=== PATIENT | male | born 1935 | race Caucasian/White ===

== ENCOUNTER → 2016-10-22 | Outpatient (CLI) | payer MEDICARE ==
[2016-10-22 11:22] LABS: ANION GAP 7 MEQ/L (8-16); BLOOD UREA NITROGEN 21 MG/DL (7-18); CALCIUM LEVEL 8.4 MG/DL (8.8-10.2); CARBON DIOXIDE LEVEL 29 MEQ/L (21-32); CHLORIDE LEVEL 109 MEQ/L (98-107); CREATININE FOR GFR 1.09 MG/DL (0.70-1.30); GLOMERULAR FILTRATION RATE > 60.0 (>42); GLUCOSE, FASTING 135 MG/DL (83-110); POTASSIUM SERUM 4.3 MEQ/L (3.5-5.1); SODIUM LEVEL 145 MEQ/L (136-145)
[2016-10-22 11:26] LABS: COLLAGEN ADP 110 SECONDS (56-103)
--- NOTE | 2016-10-22 14:01 | ECGEPIP ---
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 No prior ECG available for comparison at the time of interpretation. Electronically Signed On 10-22-2016 14:00:47 EST by Fahad Bunch
== END ==
LOC: M LAB 10:26
PROVIDERS: ATTEND Ophthalmology
DX: Z01.818 Encounter for other preprocedural examination (principal); H25.13 Age-related nuclear cataract, bilateral

== ENCOUNTER → 2017-04-06 | Outpatient (REF) | payer MEDICARE ==
[2017-04-06 17:01] LABS: PERCENT SATURATION 27.7 % (19.7-50.0); TOTAL IRON BINDING CAPACITY 271 UG/DL (250-450)
[2017-04-06 17:06] LABS: FOLATE > 24.0 NG/ML; VITAMIN B12 LEVEL 389 PG/ML
== END ==
LOC: M LAB REF 16:30
PROVIDERS: ATTEND Internal Medicine
DX: D64.9 Anemia, unspecified (principal)

== ENCOUNTER 2017-09-09 11:25 | Day surgery (SDC) | payer MEDICARE ==
[2017-09-09] MEDS ORDERED: NS 1,000 ML IV (12:30)
[2017-09-09] MEDS ORDERED: fentaNYL 100 MCG/2 ML INJECTION (J3010) As Ordered (12:34)
[2017-09-09] MEDS ORDERED: ePHEDrine SULFATE 25 MG/5 ML(5MG/ML) SYRINGE As Ordered (12:54)
[2017-09-09] MEDS ORDERED: PROPOFOL 200 MG/20 ML VIAL As Ordered (12:56)
[2017-09-09] MEDS ORDERED: LIDOCAINE 2% INJ 100 MG/5 ML SDV (FOR ANES.) As Ordered (12:56)
== END 2017-09-09 13:31 | disposition home or self-care (01) ==
LOC: M OPP 11:25
DX: R13.10 Dysphagia, unspecified (principal); R63.4 Abnormal weight loss; K22.8 Other specified diseases of esophagus; K22.4 Dyskinesia of esophagus; I48.91 Unspecified atrial fibrillation; Z95.5 Presence of coronary angioplasty implant and graft; I25.10 Atherosclerotic heart disease of native coronary artery without angina pectoris; I10 Essential (primary) hypertension; E78.5 Hyperlipidemia, unspecified; R60.0 Localized edema; E11.9 Type 2 diabetes mellitus without complications; K59.00 Constipation, unspecified; R12 Heartburn; K21.9 Gastro-esophageal reflux disease without esophagitis; M19.90 Unspecified osteoarthritis, unspecified site; Z85.46 Personal history of malignant neoplasm of prostate; Z92.3 Personal history of irradiation; Z87.891 Personal history of nicotine dependence; Z79.899 Other long term (current) drug therapy; Z79.82 Long term (current) use of aspirin; Z80.49 Family history of malignant neoplasm of other genital organs
CPT/HCPCS: 43249

== ENCOUNTER → 2017-10-16 | Outpatient (CLI) | payer MEDICARE ==
[~2017-10-16] MED LIST: ISOVUE-370 76% 100ML VIAL (Q9967) As Ordered
== END ==
LOC: M RAD 10:49
DX: I71.03 Dissection of thoracoabdominal aorta (principal); N20.0 Calculus of kidney; N28.1 Cyst of kidney, acquired
CPT/HCPCS: Q9967

== ENCOUNTER → 2017-10-26 | Outpatient (REF) | payer MEDICARE ==
[2017-10-26 19:45] LABS: IRON (FE) 22 UG/DL (65-175); PERCENT SATURATION 10.2 % (19.7-50.0); TOTAL IRON BINDING CAPACITY 215 UG/DL (250-450); TOTAL PROTEIN 6.5 GM/DL (6.4-8.2)
[2017-10-27 13:41] LABS: ALBUMIN % 48.2 % (55.8-66.1); ALPHA-1-GLOBULIN % 9.4 % (2.9-4.9); ALPHA-2-GLOBULINS % 18.9 % (7.1-11.8); BETA-1-GLOBULINS % 6.9 % (4.7-7.2)
[2017-10-27 13:42] LABS: ALBUMIN 3.13 GM/DL (3.29-5.55); ALPHA-1-GLOBULINS 0.61 GM/DL (0.17-0.41); ALPHA-2-GLOBULINS 1.23 GM/DL (0.42-0.99); BETA-1-GLOBULINS 0.45 GM/DL (0.28-0.60); BETA-2-GLOBULINS 0.65 GM/DL (0.19-0.55); GAMMA GLOBULIN % 6.6 % (11.1-18.8); GAMMA GLOBULINS 0.43 GM/DL (0.65-1.58)
== END ==
LOC: M LAB REF 18:56
DX: D64.9 Anemia, unspecified (principal); E13.42 Other specified diabetes mellitus with diabetic polyneuropathy
CPT/HCPCS: 83550

== ENCOUNTER → 2017-10-29 | Outpatient (REF) | payer MEDICARE ==
[2017-10-29 13:53] LABS: TOTAL PROTEIN,RANDOM URINE 74.8 MG/DL (0.0-12.0)
== END ==
LOC: M LAB REF 12:26
DX: E88.09 Other disorders of plasma-protein metabolism, not elsewhere classified (principal)
CPT/HCPCS: 86335

== ENCOUNTER → 2017-11-04 | Outpatient (REF) | payer MEDICARE ==
[2017-11-04 13:15] LABS: BASO # 0.1 10^3/uL (0.0-0.2); BASO % 0.7 % (0.0-1.0); EOS # 0.2 10^3/uL (0.0-0.50); HEMATOCRIT 23.4 % (42.0-52.0); HEMOGLOBIN 8.7 g/dl (14.0-18.0); IMMATURE GRANULOCYTE # 0.1 10^3/uL (0-0); IMMATURE GRANULOCYTE % 0.9 % (0-3.0); LYMPH # 1.2 10^3/uL (1.5-4.5); MEAN CORPUSCULAR HEMOGLOBIN 34.3 pg (27.0-33.0); MEAN CORPUSCULAR VOLUME 92.1 fl (80.0-96.0); MONO % 10.9 % (0.0-5.0); NEUTROPHILS # 6.5 10^3/uL (1.8-7.7); NEUTROPHILS % 72.5 % (36.0-66.0); PLATELET COUNT, AUTOMATED 363 10^3/uL (150-450); RED BLOOD COUNT 2.54 10^6/uL (4.30-6.10); RED CELL DISTRIBUTION WIDTH 14.5 % (11.5-14.5); WHITE BLOOD COUNT 8.9 10^3/uL (4.0-10.0)
[2017-11-04 13:23] LABS: MEAN CORPUSCULAR HGB CONC 37.2 g/dl (32.0-36.5)
[2017-11-04 14:48] LABS: ALBUMIN 2.5 GM/DL (3.2-5.2); ALBUMIN/GLOBULIN RATIO 0.74 (1.00-1.93); ALKALINE PHOSPHATASE 82 U/L (45-117); ALT/SGPT 25 U/L (12-78); ANION GAP 8 MEQ/L (8-16); AST/SGOT 18 U/L (7-37); BILIRUBIN,TOTAL 0.4 MG/DL (0.2-1.0); BLOOD UREA NITROGEN 29 MG/DL (7-18); CALCIUM LEVEL 8.1 MG/DL (8.8-10.2); CARBON DIOXIDE LEVEL 27 MEQ/L (21-32); CHLORIDE LEVEL 109 MEQ/L (98-107); CREATININE FOR GFR 1.45 MG/DL (0.70-1.30); GLOMERULAR FILTRATION RATE 49.9 (>35); GLUCOSE, FASTING 103 MG/DL (70-100); NT-PRO BNP 1261 PG/ML (<450); POTASSIUM SERUM 4.3 MEQ/L (3.5-5.1); SODIUM LEVEL 144 MEQ/L (136-145); TOTAL PROTEIN 5.9 GM/DL (6.4-8.2)
== END ==
LOC: M LABDRAW1 11:46
DX: D64.9 Anemia, unspecified (principal); I11.9 Hypertensive heart disease without heart failure; I48.0 Paroxysmal atrial fibrillation; R60.0 Localized edema
CPT/HCPCS: 84443

== ENCOUNTER → 2017-11-20 | Outpatient (REF) | payer MEDICARE ==
[2017-11-20 17:03] LABS: IRON (FE) 48 UG/DL (65-175); PERCENT SATURATION 23.5 % (19.7-50.0); TOTAL IRON BINDING CAPACITY 204 UG/DL (250-450)
== END ==
LOC: M LAB REF 16:37
DX: D50.9 Iron deficiency anemia, unspecified (principal)
CPT/HCPCS: 83550

== ENCOUNTER → 2018-01-11 | Outpatient (REF) | payer MEDICARE ==
[2018-01-11 13:21] LABS: IRON (FE) 78 UG/DL (65-175); PERCENT SATURATION 30.7 % (19.7-50.0); TOTAL IRON BINDING CAPACITY 254 UG/DL (250-450)
== END ==
LOC: M LAB REF 12:30
DX: D50.9 Iron deficiency anemia, unspecified (principal)
CPT/HCPCS: 83550

== ENCOUNTER → 2018-03-19 | Outpatient (REF) | payer MEDICARE ==
[2018-03-19 13:43] LABS: VITAMIN B12 LEVEL 793 PG/ML (247-911)
[2018-03-27 00:08] LABS: HOMOCYST(E)INE SERUM 11.4 umol/L (0.0-15.0)
[2018-03-27 00:08] LABS: Methylmalonic Acid 225 nmol/L (0-378)
== END ==
LOC: M LAB REF 13:03
DX: D51.9 Vitamin B12 deficiency anemia, unspecified (principal)
CPT/HCPCS: 82607

== ENCOUNTER → 2018-03-25 | Outpatient (REF) | payer MEDICARE | LOC: M LAB REF 13:38 | DX: D64.9 Anemia, unspecified (principal) | CPT/HCPCS: 88300 ==

== ENCOUNTER → 2018-04-19 | Outpatient (REF) | payer MEDICARE ==
[2018-04-19 11:40] LABS: IRON (FE) 43 UG/DL (65-175); PERCENT SATURATION 19.5 % (19.7-50.0); TOTAL IRON BINDING CAPACITY 220 UG/DL (250-450)
== END ==
LOC: M LAB REF 10:45
DX: D50.9 Iron deficiency anemia, unspecified (principal)
CPT/HCPCS: 83550

== ENCOUNTER → 2018-06-10 | Outpatient (REF) | payer MEDICARE ==
[2018-06-10 14:52] LABS: IRON (FE) 55 UG/DL (65-175); PERCENT SATURATION 22.6 % (19.7-50.0); TOTAL IRON BINDING CAPACITY 243 UG/DL (250-450)
[2018-06-10 15:27] LABS: RETIC HEMOGLOBIN EQUIVALENT 33.1 pg (24-36); RETICULOCYTE % 1.5 % (0.5-1.5)
== END ==
LOC: M LAB REF 13:59
DX: D50.9 Iron deficiency anemia, unspecified (principal)
CPT/HCPCS: 83550

== ENCOUNTER 2018-09-21 11:02 | Inpatient (IN) | payer MEDICARE ==
[~2018-09-21] VITALS: Ht 172.7 cm; Wt 87.9 kg
[~2018-09-21 11:02] MED LIST changes: -COLA100C5 PO; -FERR1TAB8 PO; -GASTROGRAFIN SOLUTION 30ML (Q9963) As Ordered ONE; -RANI150T PO
[2018-09-21] MEDS ORDERED: FERR1TAB8 PO (11:56)
[2018-09-21] MEDS ORDERED: RANI150T PO (11:56)
[2018-09-21] MEDS ORDERED: COLA100C5 PO (11:57)
[2018-09-21 11:58] LABS: BASO % 0.2 % (0.0-1.0); EOS # 0.1 10^3/uL (0.0-0.50); EOS % 0.6 % (0.0-3.0); HEMOGLOBIN 9.1 g/dl (13.5-17.5); LYMPH # 0.9 10^3/uL (1.5-4.5); LYMPH % 6.2 % (24.0-44.0); MEAN CORPUSCULAR HEMOGLOBIN 28.9 pg (27.0-33.0); MEAN CORPUSCULAR HGB CONC 32.5 g/dl (32.0-36.5); MEAN CORPUSCULAR VOLUME 88.9 fl (80.0-96.0); MONO # 1.6 10^3/uL (0.0-0.8); MONO % 11.3 % (0.0-5.0); NEUTROPHILS # 11.7 10^3/uL (1.8-7.7); NEUTROPHILS % 80.9 % (36.0-66.0); PLATELET COUNT, AUTOMATED 222 10^3/uL (150-450); RED BLOOD COUNT 3.15 10^6/uL (4.30-6.10); WHITE BLOOD COUNT 14.5 10^3/uL (4.0-10.0)
[2018-09-21] MEDS ORDERED: PIPERACILLIN/TAZOBACTAM SOD 3.375 GM in D5W MINI-BAG PLUS 50 ML IV ONE (12:30)
[2018-09-21 12:40] LABS: ALBUMIN 2.4 GM/DL (3.2-5.2); BILIRUBIN,TOTAL 0.4 MG/DL (0.2-1.0); C REACTIVE PROTEIN QUANTITATIV 24.8 MG/DL (0.00-0.30); CALCIUM LEVEL 7.9 MG/DL (8.8-10.2); CREATININE FOR GFR 1.64 MG/DL (0.70-1.30); GLOMERULAR FILTRATION RATE 43.1 (>35); POTASSIUM SERUM 4.6 MEQ/L (3.5-5.1); TOTAL PROTEIN 6.1 GM/DL (6.4-8.2)
[2018-09-21] MEDS ORDERED: ACETAMINOPH W/CODEINE #3 TAB UD PO PRN (15:15)
[2018-09-21] MEDS ORDERED: ONDANSETRON 4MG/2ML VIAL (J2405) IV PRN (15:15)
[2018-09-21] MEDS: LR 1,000 ML IV SCH (15:30)
[2018-09-21] MEDS ORDERED: LIDOCAINE 1% MDV 20ML VIAL As Ordered ONE (15:56)
[2018-09-21 16:45] VITALS: BP 165/74
--- NOTE | 2018-09-21 17:37 | REP ---
Ultrasound-guided abscess drain The procedure was performed under the direct supervision of Dr. Rojo. The patient has a history of a 5 cm low-density inflammatory collection retrocecal in the right mid abdomen most compatible with acute appendicitis with abscess seen on a previous CT scan performed earlier today. The risks and benefits of the procedure were explained to the patient and informed consent was obtained. The abscess was localized using ultrasound guidance. The skin was prepped and draped in a sterile fashion. 1% lidocaine was used as a local anesthetic. Using ultrasound guidance an 8-Brazilian Skater APDL catheter was inserted, however, is was likely deployed beside the abscess as there was no return. The catheter was removed and a new 8-Brazilian Skater APDL catheter was inserted into the abscess using trocar technique. 30 ml of beige, red tinged fluid was withdrawn and sent to the lab for analysis. The abscess cavity was flushed with three 10 ml aliquots of sterile saline. The catheter was affixed to the skin and attached to a gravity drainage bag. A sterile dressing was applied. The the patient tolerated the procedure well and there were no immediate complications. Reviewed by JOSSELINE Rodríguez 09/21/2018 04:49 P Electronically Signed by Brown Rojo MD 09/21/2018 05:26 P
[2018-09-21] MEDS: PIPERACILLIN/TAZOBACTAM SOD 3.375 GM in D5W MINI-BAG PLUS 50 ML IV SCH (18:24)
[2018-09-21] MEDS: FAMOTIDINE 20 MG TAB PO SCH (19:59)
[2018-09-21] MEDS: ATORVASTATIN 20 MG TAB PO SCH (20:00)
[2018-09-21] MEDS: ACETAMINOPHEN TAB 650MG DOSE (2X325MG) PO PRN (20:00)
[2018-09-21] MEDS: CARVedilol 12.5 MG TAB PO SCH (20:00)
[2018-09-21 22:00] VITALS: BP 151/67
[2018-09-22] MEDS: PIPERACILLIN/TAZOBACTAM SOD 3.375 GM in D5W MINI-BAG PLUS 50 ML IV SCH ×4 (00:20→18:32)
--- NOTE | 2018-09-22 00:29 | HPE ---
DATE OF ADMISSION: 09/21/2018 ADMISSION DIAGNOSIS: Appendicitis with abscess. HISTORY OF PRESENT ILLNESS: The patient is a pleasant 82-year-old man who has been followed by (cut off) for a myelodysplastic syndrome for some time. He has anemia secondary to this. He was seen last week on or about September 14, 2018, and at that time, he had complained of some lower abdominal pain, particularly in the right lower quadrant. Because of this, he was scheduled for a CT scan of the abdomen and pelvis. That was done on September 21, 2018 and the scan showed findings of an abscess just inferior to the cecum consistent with appendicitis with abscess. He reported that he had been having pain since last week. He had noticed a couple of nights when he had some obvious sweating. He had not noticed any definite rigors. He did report that his appetite was off, and he had persistent pain that waxed and waned somewhat in intensity. He was sent to the emergency department and because of his CT findings, I was consulted. The patient is now admitted to manage his appendicitis with abscess. ALLERGIES: The patient denies any known drug allergies. HOME MEDICATIONS: Include amiodarone 200 mg by mouth daily, amlodipine 10 mg by mouth daily, atorvastatin 80 mg by mouth every evening at bedtime, carvedilol 12.5 mg by mouth twice daily, Colace 100 mg by mouth daily, ferrous sulfate 325 mg by mouth twice daily, glucosamine chondroitin one capsule by mouth daily, magnesium oxide 400 mg by mouth twice daily, metformin hydrochloride 750 mg by mouth daily, multivitamin AREDS one capsule by mouth daily, a multivitamin one tablet daily, vitamin B6 100 mg by mouth three times weekly on Thursday, Thursday and Thursday, ranitidine 150 mg by mouth twice daily and torsemide 10 mg by mouth daily. MEDICAL HISTORY: Medical history is significant for his myelodysplastic syndrome with anemia. He apparently has not been found to have any signs of myeloma. He has a history of prostate cancer treated with radiation therapy in about 2009. He has a history of high cholesterol and hypertension. He has a known chronic (cut off) beginning in the posterior aortic arch and descending thoracic aorta and extending through the abdominal aorta to the level of the iliac bifurcation. This has been followed with serial imaging and has remained stable. The patient is a former smoker. He also has diabetes mellitus type 2. SURGICAL HISTORY: Significant for distant repair of an inguinal hernia. He has had a laparoscopic cholecystectomy. In December of 2017, he underwent drainage of a subdural hematoma, which had occurred following a fall 1-2 months earlier. He had been on Eliquis for a history of atrial fibrillation, but this was discontinued after his subdural hematoma. He has had surgery for trigger fingers. He has had some skin lesions removed from the neck. He has also had bilateral cataract surgery. SOCIAL HISTORY: Patient is . He is accompanied by his and daughter to the emergency department. He is a former smoker and denies any significant alcohol intake. REVIEW OF SYSTEMS: Shows no recent chest pain or palpitations. He denies shortness of breath, cough, wheezing or sputum production. He has not had any nausea or vomiting but does report that his appetite has been off. He has no new bone or joint issues. He denies any dysuria or hematuria. He has had no history of seizure or stroke. The remainder of the review of systems is negative. FAMILY HISTORY: Noncontributory. PHYSICAL EXAM: Reveals a pleasant older man sitting on the edge of the stretcher in the emergency department. His most recent vital signs show a temperature of 99.1, pulse of 70, respirations of 18 and a blood pressure of 154/63. The patient is alert and oriented. Skin: Warm and dry. Sclerae are anicteric. Mucous membranes are moist. The neck is supple without mass or bruit. Heart exam shows a regular rhythm. The lungs are clear to auscultation bilaterally. The patient's abdomen is flat. He has a couple of small scars in the upper abdomen consistent with prior laparoscopic cholecystectomy. He does have bowel sounds present. There is no evident abdominal wall hernia. Percussion shows some tenderness in the right midabdomen. On palpation, the abdomen is soft throughout, but he has some moderate to moderately-severe direct tenderness about at and slightly above the level of the umbilicus in the right side of the abdomen laterally. No definite mass is palpable. Extremities: Show palpable radial and pedal pulses bilaterally. He has no peripheral edema. Laboratory studies show a white count of 14.5 with a differential showing 81% neutrophils, 6% lymphocytes and 11% monocytes. Hemoglobin is 9 with a hematocrit of 28% and the platelet count is 222,000. His chemistry profile shows sodium 142, potassium 4.6, chloride 107, CO2 of 25, BUN of 25, creatinine 1.6 and a glucose of 142. His lactic acid was 2.1. Liver function tests were normal. C-reactive protein was 24.8, which is quite high. Total protein was 6.1 with an albumin of 2.4. His CT scan I reviewed independently. The gallbladder is surgically absent with some clips present. He has a definite collection of somewhat mixed density in the area just inferior and posterior to the cecum. This lies just inferior to the inferior most aspect of the right lobe of the liver. There is no evidence of any free air or free fluid within the abdomen. The abscess is approximately 5 cm in maximum diameter. I reviewed a prior CT scan from 2013, and the area of this collection is certainly consistent with the site of the previously noted appendix. His appendix is not however well seen currently. IMPRESSION: 1. Appendicitis with abscess. 2. Chronic thoracoabdominal aortic dissection. 3. Diabetes mellitus. 4. Hypertension. 5. History of atrial fibrillation. 6. Hyperlipidemia. 7. Myelodysplastic syndrome with chronic anemia. 8. Gastroesophageal reflux disease. 9. History of prostate cancer, status post radiation treatment 2009. 10. Chronic kidney disease stage III. 11. Status post drainage of subdural hematoma December 2017. PLAN: The patient was counseled that he has a definite abscess that requires treatment. I advised the patient and his family that operating now when there is a definite abscess would increase the likelihood of infectious problems within the abdomen or within his wound or wounds. I have recommended that we treat him with antibiotics and have a percutaneous drain placement for management of the abscess. I advised him that if he responds well to this treatment, he would be in the hospital for several days and then at home on antibiotics for a time. If the abscess can be managed in this way, we can discuss later whether to proceed with an elective incidental appendectomy or whether to just monitor him for any evidence of recurrence. The patient and his family members had an opportunity to ask questions. They are agreeable with the plan for nonoperative management at this time. He will be continued on piperacillin-tazobactam for antibiotic coverage. We will continue many of his regular medications here in the hospital. I will consult radiology for an imaging-guided percutaneous drain placement.
[2018-09-22 02:00] VITALS: BP 116/59
[2018-09-22 06:00] VITALS: BP 150/69
[2018-09-22] MEDS: LR 1,000 ML IV SCH (06:00)
[2018-09-22 06:02] LABS: BASO % 0.4 % (0.0-1.0); EOS # 0.1 10^3/uL (0.0-0.50); EOS % 0.9 % (0.0-3.0); HEMATOCRIT 27.7 % (42.0-52.0); HEMOGLOBIN 8.9 g/dl (13.5-17.5); LYMPH % 9.6 % (24.0-44.0); MEAN CORPUSCULAR HEMOGLOBIN 28.6 pg (27.0-33.0); MEAN CORPUSCULAR HGB CONC 32.1 g/dl (32.0-36.5); MEAN CORPUSCULAR VOLUME 89.1 fl (80.0-96.0); NEUTROPHILS # 8.4 10^3/uL (1.8-7.7); NEUTROPHILS % 78.9 % (36.0-66.0); PLATELET COUNT, AUTOMATED 193 10^3/uL (150-450); RED BLOOD COUNT 3.11 10^6/uL (4.30-6.10); WHITE BLOOD COUNT 10.7 10^3/uL (4.0-10.0)
[2018-09-22 06:26] LABS: CALCIUM LEVEL 8.2 MG/DL (8.8-10.2); CREATININE FOR GFR 1.56 MG/DL (0.70-1.30); GLOMERULAR FILTRATION RATE 45.7 (>35); POTASSIUM SERUM 4.2 MEQ/L (3.5-5.1)
[2018-09-22 10:00] VITALS: BP 146/48
[2018-09-22] MEDS: TORSEMIDE 10 MG TABLET PO SCH (10:14)
[2018-09-22] MEDS: MULTIVITAMINS/MINERALS THERAP 1 TAB PO SCH (10:14)
[2018-09-22] MEDS: PYRIDOXINE 50 MG TAB PO SCH (10:14)
[2018-09-22] MEDS: AMIODARONE 200 MG TAB (PACERONE) PO SCH (10:15)
[2018-09-22] MEDS: FAMOTIDINE 20 MG TAB PO SCH ×2 (10:15→20:40)
[2018-09-22] MEDS: amLODIPine 10 MG TAB PO SCH (10:17)
[2018-09-22] MEDS: DOCUSATE SODIUM 100 MG CAP PO SCH (10:18)
[2018-09-22] MEDS: CARVedilol 12.5 MG TAB PO SCH ×2 (10:18→20:40)
[2018-09-22 14:00] VITALS: BP 145/65
[2018-09-22 18:00] VITALS: BP 139/65
[2018-09-22] MEDS: ATORVASTATIN 20 MG TAB PO SCH (20:40)
[2018-09-22] MEDS: ACETAMINOPHEN TAB 650MG DOSE (2X325MG) PO PRN (20:52)
[2018-09-22 22:00] VITALS: BP 138/62
[2018-09-23] VITALS (7 sets, daily range): BP systolic 115–149; BP diastolic 59–78
[2018-09-23] MEDS: PIPERACILLIN/TAZOBACTAM SOD 3.375 GM in D5W MINI-BAG PLUS 50 ML IV SCH ×4 (00:02→18:08)
[2018-09-23] MEDS: DOCUSATE SODIUM 100 MG CAP PO SCH (08:40)
[2018-09-23] MEDS: MULTIVITAMINS/MINERALS THERAP 1 TAB PO SCH (08:41)
[2018-09-23] MEDS: TORSEMIDE 10 MG TABLET PO SCH (08:41)
[2018-09-23] MEDS: FAMOTIDINE 20 MG TAB PO SCH ×2 (08:41→20:43)
[2018-09-23] MEDS: CARVedilol 12.5 MG TAB PO SCH ×2 (08:41→20:43)
[2018-09-23] MEDS: AMIODARONE 200 MG TAB (PACERONE) PO SCH (08:41)
[2018-09-23] MEDS: amLODIPine 10 MG TAB PO SCH (08:41)
[2018-09-23] MEDS: metFORMIN XR 750 MG TAB PO SCH (09:00)
[2018-09-23] MEDS: OCUVITE 1 TAB PO SCH (18:08)
[2018-09-23] MEDS: ATORVASTATIN 20 MG TAB PO SCH (20:42)
[2018-09-23] MEDS: ACETAMINOPHEN TAB 650MG DOSE (2X325MG) PO PRN (20:44)
[2018-09-24] MEDS: PIPERACILLIN/TAZOBACTAM SOD 3.375 GM in D5W MINI-BAG PLUS 50 ML IV SCH ×2 (01:57→06:24)
[2018-09-24 02:00] VITALS: BP 155/66
[2018-09-24 06:00] VITALS: BP 137/66
[2018-09-24 07:18] LABS: BASO % 0.5 % (0.0-1.0); EOS # 0.1 10^3/uL (0.0-0.50); EOS % 1.3 % (0.0-3.0); HEMATOCRIT 28.2 % (42.0-52.0); HEMOGLOBIN 9.2 g/dl (13.5-17.5); LYMPH # 1.1 10^3/uL (1.5-4.5); LYMPH % 14.5 % (24.0-44.0); MEAN CORPUSCULAR HEMOGLOBIN 29.2 pg (27.0-33.0); MEAN CORPUSCULAR HGB CONC 32.6 g/dl (32.0-36.5); MEAN CORPUSCULAR VOLUME 89.5 fl (80.0-96.0); MONO # 0.8 10^3/uL (0.0-0.8); MONO % 10.5 % (0.0-5.0); NEUTROPHILS # 5.3 10^3/uL (1.8-7.7); NEUTROPHILS % 71.7 % (36.0-66.0); PLATELET COUNT, AUTOMATED 234 10^3/uL (150-450); RED BLOOD COUNT 3.15 10^6/uL (4.30-6.10); WHITE BLOOD COUNT 7.4 10^3/uL (4.0-10.0)
[2018-09-24] MEDS ORDERED: AUGM875T28 PO (10:15)
[2018-09-24] MEDS: metFORMIN XR 750 MG TAB PO SCH (10:16)
[2018-09-24] MEDS: PYRIDOXINE 50 MG TAB PO SCH (10:16)
[2018-09-24] MEDS: OCUVITE 1 TAB PO SCH (10:16)
[2018-09-24] MEDS: AMIODARONE 200 MG TAB (PACERONE) PO SCH (10:17)
[2018-09-24] MEDS: amLODIPine 10 MG TAB PO SCH (10:17)
[2018-09-24] MEDS: TORSEMIDE 10 MG TABLET PO SCH (10:17)
[2018-09-24] MEDS: MULTIVITAMINS/MINERALS THERAP 1 TAB PO SCH (10:17)
[2018-09-24 10:18] VITALS: BP 137/66
[2018-09-24] MEDS: CARVedilol 12.5 MG TAB PO SCH (10:18)
[2018-09-24] MEDS: FAMOTIDINE 20 MG TAB PO SCH (10:18)
[2018-09-24] MEDS: DOCUSATE SODIUM 100 MG CAP PO SCH (10:18)
--- NOTE | 2018-09-25 06:58 | IPN ---
DATE: 09/24/2018 HISTORY: The patient is now three days post drainage of a right mid abdominal abscess felt to be secondary to appendicitis. He has done very well over the last 24 hours. He is eating and voiding without difficulty. He continues on his piperacillin tazobactam. The drain is draining small amounts. Vital signs show that he has been afebrile over the past 24 hours. His pulse has generally been in the 60s to low 70s. Blood pressure is excellent and his room air pulse oximetry is in the mid 90s. Intake and output yesterday he had 590 recorded in with a 1000 recorded out. His drain had 20 mL out yesterday and 13 mL recorded today. PHYSICAL EXAMINATION: Exam reveals an older man in no acute distress. He moves without apparent difficulty or pain. Examination of the abdomen shows the abdomen to be soft. It is nondistended. He has bowel sounds present. He has a percutaneous drain in the right flank, which is securely taped to the abdominal wall. There is a minimal amount of bloody/purulent appearing fluid in the bag. Laboratory studies show a white count of 7, which has now returned to normal of 11 on the . His hemoglobin is 9 with a hematocrit of 28 and platelet count is 234,000. Differential count shows 72% neutrophils, 14% lymphocytes, 10% monocytes. Cultures of his drainage fluid showed no growth aerobically. IMPRESSION: The patient is doing very well following percutaneous drainage of his appendiceal abscess. He is quite comfortable and his white count has returned to normal and he remains afebrile. PLAN: The patient will be converted to oral antibiotics. Initially I considered Cipro and Flagyl, but the pharmacy program reports that there can be an interaction between the amiodarone and the Flagyl to cause issues, so a prescription for Augmentin will be provided. He is not taking any prescription pain relievers and these will not be prescribed. He was instructed he will need to empty the drain daily and record the output and his is aware of this and will assist with this. He can take a diet as tolerated and pursue light activity as tolerated. I will plan on seeing him back next week in the office on the for possible removal of his drain. Subsequently, we can arrange followup imaging and later determine for an interval appendectomy is appropriate. The patient had an opportunity to have his questions answered and he will be discharged today.
--- NOTE | 2018-09-25 07:10 | IPN ---
DATE: 09/23/2018 HISTORY: The patient is now postop day #2 from percutaneous drain placement for an abscess secondary to appendicitis. The drain was placed on the late afternoon or evening of the . The patient has done well since drainage. He has had no fevers or chills. He is tolerating a diet and is up ambulating without difficulty. Vital signs show that he has been afebrile over the past 24 hours. His pulse is in the 60s to 70s and his blood pressure is good. Intake and output shows that yesterday he had 2400 in with 1400 out. His drain had 20 mL recorded out yesterday. PHYSICAL EXAMINATION: Shows the patient appears quite comfortable. He is ambulating without difficulty. The abdomen is soft and he has only some minimal tenderness on the right-hand side. The drain is well taped to the flank. IMPRESSION: The patient is doing quite well following drainage of his abscess. He remains on piperacillin/tazobactam for coverage. PLAN: The patient's diet will be advanced. He has tolerated clear liquids well. He will be advanced to a regular diet. We will recheck a CBC tomorrow. He will remain on his usual medications. I would anticipate that if he continues to do well he would be ready for discharge for the next 1-2 days.
--- NOTE | 2018-09-25 07:11 | IPN ---
DATE OF SERVICE: 09/22/2018 HISTORY: The patient was admitted yesterday with an abscess secondary to appendicitis. Radiology was able to place a percutaneous drain last evening with return of some purulent fluid. They reported return of approximately 30 mL of fluid. Fluid was sent for Gram stain and culture. The patient reports that he is generally doing well with very little discomfort from the drain placement. Vital signs show that he has been afebrile since placement of the drain. His pulse is in the 60s and 70s. Blood pressure and oxygen saturation are fine. Intake and output shows that his intake yesterday is not well recorded. He had a urine output of 400 mL recorded yesterday. PHYSICAL EXAMINATION: The patient is actually up ambulating in the room. He is alert and oriented. His heart exam shows a regular rhythm and the lungs are clear. The abdomen is soft and the drain is nicely taped to the right flank with a minimal amount of bloody fluid in the drainage bag. Laboratory studies today show white count of 11,000 which is down from 14,000 yesterday. Hemoglobin is 9 with a hematocrit of 28 and platelet count is 193,000. Differential count shows 79% neutrophils, 10% lymphocytes and 9% monocytes. Chemistry profile shows his BUN is 21 with a creatinine of 1.6. His gram stain from his abscess drainage revealed many white cells, a few red cells, many gram-negative rods and moderate gram-positive rods. Culture result is pending. IMPRESSION: The patient is doing very well following drainage of his abscess presumed to be from appendicitis. PLAN: The patient will be continued on his piperacillin tazobactam. The drain output will be monitored as will his symptoms. He will be allowed a clear liquid diet. His torsemide will be resumed today along with the other medications that had been continued yesterday.
== END 2018-09-24 12:04 | disposition home or self-care (01) | DRG 340 ==
LOC: M ED 11:02 → M ED INP 15:11 → M MSPAV 16:43
PROVIDERS: ADMIT Surgery; ATTEND Surgery
PROC: 0D9J40Z Drainage of Appendix with Drainage Device, Percutaneous Endoscopic Approach (ICD-10-PCS; principal; 2018-09-21)
DX: K35.33 Acute appendicitis with perforation, localized peritonitis, and gangrene, with abscess (principal); I12.9 Hypertensive chronic kidney disease with stage 1 through stage 4 chronic kidney disease, or unspecified chronic kidney disease; E78.00 Pure hypercholesterolemia, unspecified; Z85.46 Personal history of malignant neoplasm of prostate; E11.9 Type 2 diabetes mellitus without complications; Z87.891 Personal history of nicotine dependence; I48.2 Chronic atrial fibrillation; K21.9 Gastro-esophageal reflux disease without esophagitis; N18.3 Chronic kidney disease, stage 3 (moderate); D46.9 Myelodysplastic syndrome, unspecified

== ENCOUNTER → 2018-09-21 | Outpatient (CLI) | payer MEDICARE ==
[~2018-09-21] MED LIST changes: +AMIO200T PO; +AMLO10TA5 PO; +ASPI1TAB PO; +ATEN100T; +ATOR80TA59 PO; +CARV12.5 PO; +CHLO125TA; +COLA100C5 PO; +DULC5TAB; +ELIQ5TAB; +FERR1TAB8 PO; +FERR325T3 PO; +GASTROGRAFIN SOLUTION 30ML (Q9963) As Ordered ONE; +GLUC1CAP10 PO; +IRON50TA PO; -ISOVUE-370 76% 100ML VIAL (Q9967) As Ordered; +MAGN1TAB25 PO; +METF750T PO; +MULT1TAB10 PO; +OMEP40CA2; +PRESCAP PO; +PYRI100T2 PO; +RANI150T PO; +RANI1SYP PO; +SPIR-10; +TORS20TA2 PO; +TRAN1TAB49
--- NOTE | 2018-09-21 10:57 | REP ---
CT abdomen with oral but without IV contrast: History: Abdomen pain. History of prostate carcinoma and myelodysplastic syndrome. CT findings: Preliminary digital chain repairer radiograph is unremarkable. Lung window show no evidence of infiltrate or atelectasis. There is vascular calcification. Mild cardiac enlargement is seen. Post cholecystectomy clips are noted. There is an accessory splenule at the inferior edge of the spleen. The liver and the spleen are otherwise unremarkable. No adrenal lesion is seen. No pancreatic abnormality is observed. No retroperitoneal mass or adenopathy is seen. The abdominal aorta shows evidence of displaced intimal calcifications indicating an abdominal aortic dissection. This is chronic and unchanged from November 14, 2013. There is a 3 mm calculus in the upper pole left kidney. A small right renal cyst is seen. Small and large intestinal bowel loops are unremarkable except for left colonic diverticulosis. There is an inflammatory low density collection in the retrocecal soft tissues adjacent to the the inferior tip of the liver consistent with an appendiceal abscess. This measures 4.2 x 4.9 cm in transverse dimension by 5.1 cm cranial to caudal. There is no evidence of free intraperitoneal air. Impression: 5 cm low density inflammatory collection retrocecal in the right mid abdomen most compatible with a acute appendicitis with abscess and adjacent inflammation. Also noted are chronic aortic dissection and intrarenal nephrolithiasis left kidney. Findings were telephoned to the referring provider and the patient was advised to report to the ER. Electronically Signed by Brown Rojo MD 09/21/2018 10:49 A
== END ==
LOC: M RAD 09:19
PROVIDERS: ATTEND Internal Medicine Hematology & Oncology
DX: R93.5 Abnormal findings on diagnostic imaging of other abdominal regions, including retroperitoneum (principal); I71.02 Dissection of abdominal aorta; N28.1 Cyst of kidney, acquired; N20.0 Calculus of kidney; K57.30 Diverticulosis of large intestine without perforation or abscess without bleeding; R10.9 Unspecified abdominal pain; Z90.49 Acquired absence of other specified parts of digestive tract

== ENCOUNTER → 2018-10-06 | Outpatient (REF) | payer MEDICARE ==
[~2018-10-06] MED LIST changes: +AUGM875T28 PO; +COLA100C5 PO; +FERR1TAB8 PO; +RANI150T PO
== END ==
LOC: M LAB REF 16:41
PROVIDERS: ATTEND Nurse Practitioner Adult Health
DX: K35.21 Acute appendicitis with generalized peritonitis, with abscess (principal)

== ENCOUNTER → 2018-10-19 | Outpatient (CLI) | payer MEDICARE ==
[2018-10-19 11:55] LABS: BASO % 0.5 % (0.0-1.0); EOS # 0.1 10^3/uL (0.0-0.50); EOS % 1.3 % (0.0-3.0); HEMATOCRIT 28.2 % (42.0-52.0); LYMPH % 11.1 % (24.0-44.0); MEAN CORPUSCULAR HEMOGLOBIN 28.7 pg (27.0-33.0); MEAN CORPUSCULAR HGB CONC 31.9 g/dl (32.0-36.5); MEAN CORPUSCULAR VOLUME 89.8 fl (80.0-96.0); MONO # 1.1 10^3/uL (0.0-0.8); MONO % 13.2 % (0.0-5.0); NEUTROPHILS # 6.3 10^3/uL (1.8-7.7); NEUTROPHILS % 73.2 % (36.0-66.0); PLATELET COUNT, AUTOMATED 216 10^3/uL (150-450); RED BLOOD COUNT 3.14 10^6/uL (4.30-6.10); WHITE BLOOD COUNT 8.6 10^3/uL (4.0-10.0)
== END ==
LOC: M LAB 11:20
PROVIDERS: ATTEND Surgery
DX: K35.21 Acute appendicitis with generalized peritonitis, with abscess (principal)

== ENCOUNTER 2018-12-24 08:13 | Day surgery (SDC) | payer MEDICARE ==
[~2018-12-24] VITALS: Ht 172.7 cm; Wt 88.9 kg
[2018-12-24] VITALS (8 sets, daily range): BP systolic 130–168; BP diastolic 61–74; O2SAT 97
[~2018-12-24 08:13] MED LIST changes: -ASPI1TAB PO; +ASPI81TA26 PO; +LOSA100T50 PO; +LR 1,000 ML IV ONE; -MAGN1TAB25 PO; +MAGN1TAB26 PO; +MULTCAP PO; +cefoTEtan DISODIUM 2 GM in D5W MINI-BAG PLUS 50 ML IV ONE
[2018-12-24] MEDS: TORSEMIDE 10 MG TABLET PO SCH (09:00)
[2018-12-24] MEDS: amLODIPine 10 MG TAB PO SCH (09:00)
[2018-12-24] MEDS ORDERED: BUPIVACAINE HCL 0.25% 30 ML VIAL As Ordered ONE (09:24)
[2018-12-24] MEDS ORDERED: dexameTHASONE 4 MG/ML 1ML VIAL (J1100) As Ordered ONE (09:59)
[2018-12-24] MEDS ORDERED: fentaNYL 100 MCG/2 ML INJECTION (J3010) As Ordered ONE (10:00)
[2018-12-24] MEDS ORDERED: SUGAMMADEX SODIUM 500 MG/5 ML VIAL (BRIDION) As Ordered ONE (10:00)
[2018-12-24] MEDS ORDERED: ONDANSETRON 4MG/2ML VIAL (J2405) As Ordered ONE (10:00)
[2018-12-24] MEDS ORDERED: LIDOCAINE 2% INJ 100 MG/5 ML SDV (FOR ANES.) As Ordered ONE (10:00)
[2018-12-24] MEDS ORDERED: ROCURONIUM BROMIDE 50 MG/5 ML VIAL As Ordered ONE ×2 (10:00→10:25)
[2018-12-24] MEDS ORDERED: PROPOFOL 200 MG/20 ML VIAL As Ordered ONE (10:00)
[2018-12-24] MEDS ORDERED: ePHEDrine SULFATE 25 MG/5 ML(5MG/ML) SYRINGE As Ordered ONE ×2 (10:04→11:02)
[2018-12-24] MEDS ORDERED: DESFLURANE 240 ML INHALANT As Ordered ONE (10:30)
[2018-12-24] MEDS ORDERED: KETOROLAC 60 MG/2 ML VIAL (J1885) As Ordered ONE (12:47)
[2018-12-24] MEDS ORDERED: fentaNYL 100 MCG/2 ML INJECTION (J3010) IV PRN (13:45)
[2018-12-24] MEDS ORDERED: LR 1,000 ML IV SCH (13:45)
[2018-12-24] MEDS ORDERED: ONDANSETRON 4MG/2ML VIAL (J2405) IV PRN ×2 (13:45→14:15)
[2018-12-24] MEDS: LR 1,000 ML IV SCH (14:04)
[2018-12-24] MEDS ORDERED: ACETAMINOPHEN TAB 650MG DOSE (2X325MG) PO PRN (14:15)
[2018-12-24] MEDS ORDERED: MORPHINE 4 MG/ML 1ML VIAL/SYRINGE (J2270) IV PRN (14:15)
[2018-12-24] MEDS: FAMOTIDINE 20 MG TAB PO SCH (20:51)
[2018-12-24] MEDS: NORCO, ANEXSIA 5/325MG TABLET (HYDROcodone/ACETAMINOPHEN) PO PRN (20:51)
[2018-12-24] MEDS: CARVedilol 12.5 MG TAB PO SCH (20:52)
[2018-12-24] MEDS ORDERED: ATORVASTATIN 20 MG TAB PO SCH (21:00)
[2018-12-24] MEDS ORDERED: LOSARTAN 50 MG TAB PO SCH (21:00)
[2018-12-25 02:00] VITALS: BP 144/67
[2018-12-25] MEDS: NORCO, ANEXSIA 5/325MG TABLET (HYDROcodone/ACETAMINOPHEN) PO PRN ×2 (05:43→10:35)
[2018-12-25 06:00] VITALS: BP 147/64
[2018-12-25 08:29] VITALS: BP 158/66
[2018-12-25 08:33] VITALS: BP 158/66
[2018-12-25] MEDS: CARVedilol 12.5 MG TAB PO SCH (08:33)
[2018-12-25] MEDS: FAMOTIDINE 20 MG TAB PO SCH (08:33)
[2018-12-25] MEDS: amLODIPine 10 MG TAB PO SCH (08:34)
[2018-12-25] MEDS: TORSEMIDE 10 MG TABLET PO SCH (09:00)
[2018-12-25] MEDS ORDERED: AMIODARONE 200 MG TAB (PACERONE) PO SCH (09:00)
[2018-12-25] MEDS: LR 1,000 ML IV SCH (10:04)
[2018-12-25] MEDS ORDERED: HYDR-3713 PO (13:36)
--- NOTE | 2018-12-28 11:23 | RO ---
DATE OF PROCEDURE: 12/24/2018 PREOPERATIVE DIAGNOSIS: History of appendiceal abscess with percutaneous drainage in August 2018. POSTOPERATIVE DIAGNOSIS: Extensive scarring of the residual appendix and surrounding tissues with residual debris cavity. PROCEDURE PERFORMED: Laparoscopic debridement of prior appendiceal abscess with appendectomy. SURGEON: Dr. Iván Damon ENAMEL MACHINE OPERATOR: ANESTHESIA: General. INDICATIONS FOR PROCEDURE: The patient is an 83-year-old man who had undergone drainage of an abscess secondary to appendicitis back in August 2018. He was treated with antibiotics and the infection resolved. He is now for an interval appendectomy. OPERATIVE PROCEDURE: The patient was placed supine on the operating table. He was placed under general endotracheal anesthesia. The patient's abdomen was prepped and draped in a sterile fashion. 0.25% Marcaine was infiltrated at the trocar sites as needed. A short supraumbilical midline incision was made and this was deepened through the fascia sharply. The peritoneum was opened bluntly and a 12 mm Henning cannula was placed with stay sutures. The abdomen was inflated with carbon dioxide gas and the laparoscope was placed. The patient was noted to have a normal-appearing liver. Visualized loops of the small and large bowel appeared normal, although there was some air and fluid within the bowel. There was no acute inflammatory change noted. A 5 mm trocar was placed in the left lower quadrant and a third trocar also 5 mm was placed low in the midline. Graspers were inserted. The patient was tilted to a Trendelenburg position and rolled to the left. The ascending colon was identified and this was rotated medially. The appendix was not immediately seen. It was noted that the ascending colon began at or slightly above the level of the umbilicus. Dissection began to free the lateral attachments of the ascending colon. The cecum appeared to be pulled laterally and superiorly along the lateral aspect of the ascending colon. There were some scar changes along the lateral aspect of the ascending colon which extended all the way up to and including the tip of the right lobe of the liver. The two 5 mm trocars were noted to be somewhat low for dissection in the area of interest so two additional 5 mm ports were placed. One of these was in the right upper quadrant and the second was in the right lower quadrant just below the level of the umbilicus at about the midclavicular line. Dissection proceeded working up along the lateral aspect of the descending colon toward the hepatic flexure. I also attempted to approach this area by dissecting starting at the proximal transverse colon and working along the superior aspect of the colon in the subhepatic space toward the hepatic flexure. I reviewed his CT scan intraoperatively and noted that the patient's abscess had been just below the tip of the right lobe of the liver walled off posterior to the ascending colon. Dissection proceeded working from both directions toward the area of the previous abscess. This area was initially entered from working upwards along the ascending colon. A cavity of debris several centimeters in diameter was identified. There was no fluid pus, just some somewhat gelatinous appearing material. This was suctioned from the area. The abscess was opened primarily using a harmonic scalpel. This was lined by old inflammatory debris. As this area was opened, a very short residual stump of the appendix which was wide open at the end extending into this area of inflammation was noted. With further dissection coming across the transverse colon, it was possible to free the hepatic flexure from the edge of the liver and then to free it from the retroperitoneum so that the cecum and ascending colon could be rotated medially. The base of the appendix was then more clearly identified. I would note that the dissection of this area was very difficult due to the scarring and concerns about the possibility of injuring the liver or colon and the entire operation took 3 hours because of this. The base of the appendix was then freed so that a stapler could be placed across this. An Horton 60 stapler with a green load was placed across the end of the cecum taking the residual appendiceal stump. There were a number fragments of the abscess cavity which probably incorporated pieces of the appendiceal wall which had been dissected free from the side of the colon and from the retroperitoneum. An Endopouch was inserted and all of these fragments including the stump of the appendix were placed within the specimen bag which was then closed and placed off in the left side of the abdomen. The area of the previous abscess was copiously irrigated. Inspection showed no evidence of injury of the bowel and no bleeding from the liver. I did elect to place a drain in this area because of the extensive area of inflammation and dissection. Therefore, a small incision was made in the far lateral aspect of the abdomen just below the level of the umbilicus on the right. The trocar of a 5 mm port was placed through the abdominal wall and a 19-Prydeinig Dwayne drain was inserted through the 12 mm port and directed out through the right lateral incision. This was placed extending up along lateral and posterior to the ascending colon to lie in the subhepatic space adjacent to the liver. The abdomen was then deflated and the trocars were all removed. The fascia at the Henning site was closed with interrupted simple sutures of #2-0 Vicryl. The skin incisions were all closed with #5-0 Vicryl and Steri-Strips. The drain was sutured to the skin with a #2-0 silk and dressed with a chlorhexidine gluconate OpSite. This was connected to a Russell-Perez bulb. The patient tolerated the procedure well without apparent complication. The specimen bag had been removed as the trocars were removed. He was awakened in the operating room, extubated and moved to the recovery room in stable condition.
== END 2018-12-25 10:40 | disposition home or self-care (01) ==
LOC: M SDC 08:13 → M MS5PR 14:30 → M SDC 12-25 10:40
PROVIDERS: ATTEND Surgery
DX: K38.8 Other specified diseases of appendix (principal); I11.0 Hypertensive heart disease with heart failure; I50.32 Chronic diastolic (congestive) heart failure; E11.42 Type 2 diabetes mellitus with diabetic polyneuropathy; I48.0 Paroxysmal atrial fibrillation; I71.01 Dissection of thoracic aorta; I25.10 Atherosclerotic heart disease of native coronary artery without angina pectoris; K21.9 Gastro-esophageal reflux disease without esophagitis; E78.00 Pure hypercholesterolemia, unspecified; H35.3221 Exudative age-related macular degeneration, left eye, with active choroidal neovascularization; D46.9 Myelodysplastic syndrome, unspecified; R60.0 Localized edema; N40.0 Benign prostatic hyperplasia without lower urinary tract symptoms; Z79.899 Other long term (current) drug therapy; Z79.84 Long term (current) use of oral hypoglycemic drugs; Z87.891 Personal history of nicotine dependence; Z85.46 Personal history of malignant neoplasm of prostate; Z95.5 Presence of coronary angioplasty implant and graft; Z92.3 Personal history of irradiation; Z96.1 Presence of intraocular lens; Z98.41 Cataract extraction status, right eye; Z98.42 Cataract extraction status, left eye
CPT/HCPCS: 44970; 44979; 88302; J1100; J1885; J2405; J3010

== ENCOUNTER → 2019-04-06 | Outpatient (CLI) | payer MEDICARE ==
[~2019-04-06] MED LIST changes: +GASTROGRAFIN SOLUTION 30ML (Q9963) As Ordered ONE; +HYDR-3713 PO; -LR 1,000 ML IV ONE; -METF750T PO; +METF750T36 PO; -OMEP40CA2; +OMEP40CA97; -PYRI100T2 PO; +VITA100T82 PO; -cefoTEtan DISODIUM 2 GM in D5W MINI-BAG PLUS 50 ML IV ONE
--- NOTE | 2019-04-06 19:13 | REPVR ---
EXAM: CT Abdomen and Pelvis Without Contrast EXAM DATE/TIME: 04/06/2019 6:11 PM CLINICAL HISTORY: 83 years old, male; Abdominal pain; Generalized; Prior surgery; Surgery date: <1 month; Surgery type: Appy; Additional info: Abd pain, post surgery TECHNIQUE: Imaging protocol: Axial computed tomography images of the abdomen and pelvis without contrast. Coronal and sagittal reformatted images were created and reviewed. Radiation optimization: All CT scans at this facility use at least one of these dose optimization techniques: automated exposure control; mA and/or kV adjustment per patient size (includes targeted exams where dose is matched to clinical indication); or iterative reconstruction. COMPARISON: CT ABD PELVIS W/O CONTRAST 11/14/2013 9:59 AM FINDINGS: Lungs: Subpleural reticular opacities in the right lower lobe grossly stable consistent with chronic interstitial fibrotic changes. Small annular shaped noncalcified nodules in the right lower lobe measuring 4-4.5 mm stable in size likely postinflammatory. Liver: Normal. No mass. Gallbladder and bile ducts: There has been a cholecystectomy. Pancreas: Normal. No ductal dilation. Spleen: Small splenule. Otherwise normal. No splenomegaly. Adrenals: Normal. No mass. Kidneys and ureters: 14 mm right renal cyst. Punctate nonobstructive calculi kidneys measure up to 3 mm in the left kidney. Stomach and bowel: Moderate diverticulosis is present in the distal colon. No diverticulitis. Appendix: Status post appendectomy with recent postoperative changes demonstrated in the right lower quadrant. Intraperitoneal space: Normal. No free air. No significant fluid collection. 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 Lymph nodes: Normal. No enlarged lymph nodes. Bladder: Unremarkable as visualized. Reproductive: Fiducials demonstrated within the prostate gland. Bones/joints: Pectus excavatum deformity. Moderate central spinal stenosis L2 through, moderate to severe central spinal stenosis L3-4 and L4-5. Osteoporosis. The spine demonstrates mild degenerative changes. Degenerative arthropathy of both hips. Soft tissues: Hazy nodular soft tissue densities demonstrated in the right lateral peritoneal cavity adjacent to the ascending colon and hepatic flexure. Findings may be secondary to postsurgical changes however an inflammatory process of other etiology not excluded. Otherwise unremarkable. IMPRESSION: 1. There has been a cholecystectomy. 2. 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 3. Moderate diverticulosis is present in the distal colon. No diverticulitis. 4. Bilateral nonobstructive renal calculi. Right renal cyst. 5. Hazy nodular densities in the right peritoneal cavity described above. Findings may be related to recent surgery although other etiologies including inflammatory processes and infection not excluded. Electronically signed by: Pete Evans On 04/06/2019 19:13:11 PM
== END ==
LOC: M RAD 16:29
PROVIDERS: ATTEND Internal Medicine Hematology & Oncology
DX: K57.90 Diverticulosis of intestine, part unspecified, without perforation or abscess without bleeding (principal); N20.0 Calculus of kidney; N28.1 Cyst of kidney, acquired
CPT/HCPCS: 74176; Q9963

== ENCOUNTER → 2020-01-22 | Outpatient (CLI) | payer MEDICARE ==
[~2020-01-22] MED LIST changes: -GASTROGRAFIN SOLUTION 30ML (Q9963) As Ordered ONE
== END ==
LOC: M LABSMTC 10:58
PROVIDERS: ATTEND Anesthesiology
DX: Z01.812 Encounter for preprocedural laboratory examination (principal); Z11.59 Encounter for screening for other viral diseases

== ENCOUNTER 2020-01-25 12:46 | Day surgery (SDC) | payer MEDICARE ==
[~2020-01-25] VITALS: Ht 162.6 cm; Wt 78.0 kg
[~2020-01-25 12:46] MED LIST changes: +NS 1,000 ML IV ONE
[2020-01-25] MEDS ORDERED: LIDOCAINE 2% 100MG/5ML SDV (FOR ANES.) As Ordered ONE (14:46)
[2020-01-25] MEDS ORDERED: propofoL 500 MG/50 ML VIAL As Ordered ONE (14:46)
[2020-01-25] MEDS ORDERED: fentaNYL 100 MCG/2 ML INJECTION (J3010) As Ordered ONE (14:59)
--- NOTE | 2020-01-25 15:22 | ROOR ---
Patient Name: Iván Abraham Procedure Date: 01/25/2020 2:59 PM Date of : 1935 Age: 84 Room: [facility] Gender: Male Note Status: Finalized Procedure: Upper Endoscopy + Biopsies + Balloon Dilatation Indications: Dysphagia, Weight loss Providers: Hugh See MD Referring MD: REGI COFFEY JR, MD Requesting Provider: Medicines: Monitored Anesthesia Care Complications: No immediate complications. Procedure: Pre-Anesthesia Assessment: - The heart rate, respiratory rate, oxygen saturations, blood pressure, adequacy of pulmonary ventilation, and response to care were monitored throughout the procedure. The Endoscope was introduced through the mouth, and advanced to the second part of duodenum. The upper GI endoscopy was accomplished without difficulty. The patient tolerated the procedure well. Findings: The Z-line was irregular and was found 40 cm from the incisors. Multiple biopsies were obtained with cold forceps for evaluation to rule out Engel's Esophagus randomly at the gastroesophageal junction. A medium-sized hiatal hernia was present. No other significant abnormalities were identified in a careful examination of the stomach. The exam of the duodenum was otherwise normal. A TTS dilator was passed through the scope. Dilation with a 15-16.5-18 mm balloon dilator was performed to 18 mm in the entire esophagus. The exam was otherwise without abnormality. Impression: - Z-line irregular, 40 cm from the incisors. - Medium-sized hiatal hernia. - The examination was otherwise normal. - Multiple biopsies were obtained at the gastroesophageal junction. - Dilation performed in the entire esophagus. - The examination was otherwise normal. Recommendation: - Patient has a contact number available for emergencies. The signs and symptoms of potential delayed complications were discussed with the patient. Return to normal activities tomorrow. Written discharge instructions were provided to the patient. - Resume previous diet. - Discharge patient to home. - Continue present medications. - Await pathology results. - Telephone GI clinic for pathology results in 1 week. - Return to referring physician. - The findings and recommendations were discussed with the patient's family. Hugh See MD Hugh See MD 01/25/2020 3:21:41 PM Electronically signed by Hugh See MD Number of Addenda: 0 Note Initiated On: 01/25/2020 2:59 PM Estimated Blood Loss: Estimated blood loss: none.
[2020-01-25 15:50] VITALS: BP 132/59
== END 2020-01-25 15:59 | disposition home or self-care (01) ==
LOC: M OPP 12:46
PROVIDERS: ATTEND Internal Medicine Gastroenterology
DX: K22.8 Other specified diseases of esophagus (principal); K44.9 Diaphragmatic hernia without obstruction or gangrene; R13.10 Dysphagia, unspecified; R63.4 Abnormal weight loss; I10 Essential (primary) hypertension; I48.91 Unspecified atrial fibrillation; E11.9 Type 2 diabetes mellitus without complications; Z79.899 Other long term (current) drug therapy; Z87.891 Personal history of nicotine dependence
CPT/HCPCS: 43249; 88305; J3010

== ENCOUNTER 2020-02-10 13:11 | Inpatient (IN) | payer MEDICARE ==
[~2020-02-10] VITALS: Ht 172.7 cm; Wt 67.7 kg
[~2020-02-10 13:11] MED LIST changes: -NS 1,000 ML IV ONE
[2020-02-10] MEDS ORDERED: NS 1,000 ML IV SCH (13:56)
[2020-02-10 14:00] LABS: BASO % 0.2 % (0.0-1.0); EOS % 0.4 % (0.0-3.0); HEMATOCRIT 25.4 % (42.0-52.0); HEMOGLOBIN 7.9 g/dl (13.5-17.5); LYMPH # 0.8 10^3/uL (1.5-5.0); LYMPH % 9.1 % (24.0-44.0); MEAN CORPUSCULAR HEMOGLOBIN 28.5 pg (27.0-33.0); MEAN CORPUSCULAR HGB CONC 31.1 g/dl (32.0-36.5); MEAN CORPUSCULAR VOLUME 91.7 fl (80.0-96.0); MONO # 0.8 10^3/uL (0.0-0.8); MONO % 8.9 % (0.0-5.0); NEUTROPHILS # 6.8 10^3/uL (1.5-8.5); NEUTROPHILS % 80.8 % (36.0-66.0); PLATELET COUNT, AUTOMATED 243 10^3/uL (150-450); RED BLOOD COUNT 2.77 10^6/uL (4.30-6.10); WHITE BLOOD COUNT 8.5 10^3/uL (4.0-10.0)
[2020-02-10 14:24] LABS: ALBUMIN 2.2 GM/DL (3.2-5.2); BILIRUBIN,DIRECT 0.2 MG/DL (0.0-0.2); BILIRUBIN,TOTAL 0.4 MG/DL (0.2-1.0); CALCIUM LEVEL 7.8 MG/DL (8.8-10.2); CREATININE FOR GFR 2.6 MG/DL (0.70-1.30); GLOMERULAR FILTRATION RATE 25.2 (>35); MAGNESIUM LEVEL 3.8 MG/DL (1.8-2.4); POTASSIUM SERUM 5.2 MEQ/L (3.5-5.1); TOTAL PROTEIN 5.7 GM/DL (6.4-8.2)
[2020-02-10 14:33] LABS: INR 1.21
[2020-02-10 14:34] LABS: PARTIAL THROMBOPLASTIN TIME 39.3 SECONDS (25.0-38.4)
[2020-02-10] MEDS ORDERED: CVS1500T PO (14:35)
[2020-02-10] MEDS ORDERED: PROC10TA4 PO (14:35)
[2020-02-10] MEDS ORDERED: ONDA8TAB10 PO (14:35)
[2020-02-10] MEDS ORDERED: MOM 30ML SUSPENSION UDC PO PRN (15:00)
[2020-02-10] MEDS ORDERED: MAALOX 30 ML SUSP *UDC PO PRN (15:00)
[2020-02-10] MEDS: NS 1,000 ML IV SCH (15:15)
--- NOTE | 2020-02-10 15:29 | HPEPDOC ---
[facility] Medical History & Physical Date of Admission Feb 10, 2020 Date of Service: Feb 10, 2020 Primary Care Physician: Jr Prakash Collins Attending Physician: ALEIDA PALACIOS MD History and Physical TIME OF SERVICE: 2:55 PM CHIEF COMPLAINT: Sent by oncologist HISTORY OF PRESENT ILLNESS: This is an 84-year-old gentleman who was sent by his oncologist in [place] because of abnormal blood work. Repeat blood work revealed a hemoglobin of 7.9, and creatinine of 2.60. In terms of symptoms the patient admitted to feeling very tired lately and constipated for 3 days. He denied having chest pain, shortness of breath, dizziness, abdominal pain, nausea, vomiting, or any changes in the color of his stool. At baseline he takes iron pills and his stools are dark. He is also been having difficulty swallowing and has been eating less than usual. 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 HOME MEDICATIONS: Please see below. PHYSICAL EXAMINATION: Vital Signs Date Time Temp Pulse Resp B/P (MAP) Pulse Ox O2 Delivery O2 Flow Rate FiO2 02/10/20 13:11 97.3 59 22 101/48 (65) 98 Room Air GEN: well-nourished / well developed/ NAD INTEGUMENT: Generalized pallor HEENT: NCAT /mucus membranes moist and pink CVS: RRR/NMRG/ radial pulses intact LUNGS: able to speak full sentences without stopping to take a breath / lungs are clear to auscultation bilaterally on room air ABDOMEN: Contour (distended) / soft & tender with palpation, especially at the right lower quadrant MSK/EXTREMITIES: range of motion intact in all 4 extremities NEURO: CN 2-12 are grossly intact / speech is not dysarthric PSYCH: alert and oriented to person place and time/ able to understand and follow all commands LABORATORY DATA: 02/10/20 13:51: Immature Granulocyte % (Auto) 0.6, Neutrophils (%) (Auto) 80.8H, Lymphocytes (%) (Auto) 9.1L, Monocytes (%) (Auto) 8.9H, Eosinophils (%) (Auto) 0.4, Basophils (%) (Auto) 0.2, Neutrophils # (Auto) 6.8, Lymphocytes # (Auto) 0.8L, Monocytes # (Auto) 0.8, Eosinophils # (Auto) 0.0, Basophils # (Auto) 0.0, Nucleated Red Blood Cells % (auto) 0.0, Prothrombin Time 15.0H, Prothromb Time International Ratio 1.21, Activated Partial Thromboplast Time 39.3H, Anion Gap 5L, Glomerular Filtration Rate 25.2L, Calcium Level 7.8L, Magnesium Level 3.8H, Total Bilirubin 0.4, Direct Bilirubin 0.2, Aspartate Amino Transf (AST/SGOT) 20, Alanine Aminotransferase (ALT/SGPT) 15, Alkaline Phosphatase 84, Total Protein 5.7L, Albumin 2.2L, Albumin/Globulin Ratio 0.6, Lipase 51L ASSESSMENT: Mr. Abraham is an 84-year-old with a history of appendiceal metastatic cancer, CAD, aortic valve stenosis, AAA, thoracic aneurysm, HTN, atrial fibrillation, CKD 3/4, MDS, dyslipidemia, GERD, unspecified type of congestive heart failure, and history of prostate cancer, who will be admitted for management of acute anemia and RICCI. PLAN: 1. Acute on chronic symptomatic anemia Likely secondary to chronic diseases including malignancies and CKD. He also has MDS His main symptom is feeling tired Plan: Admit to PCU/ check orthostatics/fall precautions/follow-up serial hemoglobin, iron panel, and stool occult / blood transfusion if hemoglobin drops below 7 / if iron is low, the daytime team may consider giving him Venofer and/or calling his service plumber to see if he is a candidate for Epogen / oral iron 2.Acute Renal Failure on CKD 3/4 Acute worsening of renal function may be prerenal due to poor oral intake Plan: Is/Os, daily weights / IVF / f/u ulytes for FENa or FEUrea & renal US 3. Hyperkalemia Likely due to impaired renal function Plan: Follow up repeat BMP 4. Bradycardia Likely due to amlodipine. Plan: Telemetry/monitor vitals 5. Dysphagia Plan: Follow-up barium swallow 6. Appendiceal cancer with metastases to the peritoneum - follow up with oncologist as scheduled 7. CAD / Dyslipidemia - atorvastatin 8. Chronic HTN /chronic diastolic CHF - amlodipine, losartan, torsemide 9. Atrial fibrillation - amiodarone / he's not on AC possibly due to chronic anemia DVT PROPHYLAXIS: SCDs because of acute anemia DISPOSITION: Likely home after more than 2 midnight stay Home Medications Scheduled Amiodarone HCl (Amiodarone HCl) 200 Mg Tab, 200 MG PO DAILY Amlodipine Besylate (Amlodipine Besylate) 10 Mg Tab, 10 MG PO QHS Atorvastatin Calcium (Atorvastatin Calcium) 80 Mg Tab, 80 MG PO QHS Carvedilol (Carvedilol) 12.5 Mg Tab, 12.5 MG PO BID Docusate Sodium (Colace) 100 Mg Cap, 100 MG PO DAILY Ferrous Sulfate (Ferrous Sulfate) 325 Mg Tab, 325 MG PO BID Glucosamine HCl (Glucosamine HCl) 1,500 Mg Tablet, 1,500 MG PO DAILY Losartan Potassium (Losartan Potassium) 100 Mg Tablet, 100 MG PO DAILY Magnesium Oxide (Magnesium Oxide) 400 Mg Tab, 400 MG PO BID Multivitamin (Multivitamins) 1 Each Capsule, 1 CAP PO DAILY Pyridoxine HCl (Vitamin B6) (Vitamin B-6) 100 Mg Tab, 100 MG PO 3XW MON/THU/THU Torsemide (Torsemide) 20 Mg Tab, 10 MG PO DAILY Vit A/Vit C/Vit E/Zinc/Copper (Preservision Areds Softgel) 1 Cap Cap, 1 CAP PO DAILY Scheduled PRN Hyoscyamine Sulfate (Hyoscyamine Sulfate) 0.125 Mg Tab.subl, 0.125 MG PO Q4HP PRN for TERMINAL SECRETIONS Use sublingually if unable to swallow Lorazepam (Ativan) 0.5 Mg Tablet, 0.5 MG PO Q4HP PRN for ANXIETY/AGITATION Use sublingually if unable to swallow Morphine Sulfate (Morphine Sulfate) 100 Mg/5 Ml Solution, 0.25-1 ML PO Q2H PRN for PAIN OR DYSPNEA Use sublingually if unable to swallow Ondansetron HCl (Ondansetron HCl) 8 Mg Tablet, 8 MG PO TID PRN for NAUSEA OR VOMITING Prochlorperazine Maleate (Prochlorperazine Maleate) 10 Mg Tablet, 10 MG PO QID PRN for NAUSEA OR VOMITING Allergies Coded Allergies: No Known Allergies (Unverified , 02/10/20) A-FIB/CHADSVASC A-FIB History Current/History of A-Fib/PAF?: Yes Current PO Anticoag Therapy: No Treatment Reason Anticoagulant not given: Other (acute anemia) Other reason anticoagulant not: anemia ALEIDA PALACIOS MD Feb 10, 2020 15:29
[2020-02-10] MEDS ORDERED: E-Z-PAQUE 96% w/w SUSP 176GM BTL As Ordered ONE (16:11)
[2020-02-10] MEDS ORDERED: E-Z-GAS II EFFERVESCENT PACKET (SODIUM BICARB./CITRIC ACID/SIMETHICONE) As Ordered ONE (16:11)
[2020-02-10] MEDS ORDERED: E-Z-HD 98% w/w 340GM SUSP BTL As Ordered ONE (16:11)
--- NOTE | 2020-02-10 16:16 | REP ---
RENAL ULTRASOUND: Real-time sonographic evaluation of the kidneys is performed. Right kidney is slightly smaller than left. Both are normal in echotexture. Right kidney measures 10.1 x 4.5 x 4.5 cm and left kidney 12.7 x 4.5 x 5.6 cm. There is no hydronephrosis or mass seen bilaterally. Ureteral jets could not be identified in the urinary bladder with Doppler color evaluation. IMPRESSION: Essentially negative renal ultrasound. Electronically Signed by Oscar Ruelas MD 02/14/2020 06:43 P
[2020-02-10 16:34] LABS: PERCENT SATURATION 12.6 % (19.7-50.0)
[2020-02-10 16:45] VITALS: BP 138/68
[2020-02-10 17:16] LABS: FOLATE 23.3 NG/ML (>5.4)
[2020-02-10 18:24] LABS: CALCIUM LEVEL 7.5 MG/DL (8.8-10.2); CREATININE FOR GFR 2.41 MG/DL (0.70-1.30); GLOMERULAR FILTRATION RATE 27.5 (>35)
[2020-02-10] MEDS ORDERED: PROCHLORPERAZINE 5 MG TAB (S0183) PO PRN (18:30)
[2020-02-10] MEDS ORDERED: ONDANSETRON 4 MG TAB PO PRN (18:30)
[2020-02-10 19:00] VITALS: BP_SYST 118; BP_SYST 127; BP_SYST 145; BP_DIAS 56; BP_DIAS 64; BP_DIAS 77
[2020-02-10 20:00] VITALS: BP 117/58
[2020-02-10] MEDS: ATORVASTATIN 20 MG TAB PO SCH (20:42)
[2020-02-10] MEDS: amLODIPine 10 MG TAB PO SCH (20:43)
[2020-02-10] MEDS: CARVedilol 12.5 MG TAB PO SCH (20:43)
[2020-02-10 22:35] VITALS: BP 115/56
[2020-02-10] MEDS: FERROUS SULFATE 325MG TAB PO SCH (22:38)
[2020-02-10 22:50] VITALS: BP 115/56
[2020-02-10 23:33] VITALS: BP 120/58
[2020-02-11] VITALS (7 sets, daily range): BP systolic 121–156; BP diastolic 56–69
[2020-02-11] MEDS: NS 1,000 ML IV SCH (05:37)
[2020-02-11 06:26] LABS: HEMATOCRIT 28.9 % (42.0-52.0); MEAN CORPUSCULAR HEMOGLOBIN 29.8 pg (27.0-33.0); MEAN CORPUSCULAR HGB CONC 32.2 g/dl (32.0-36.5); MEAN CORPUSCULAR VOLUME 92.6 fl (80.0-96.0); PLATELET COUNT, AUTOMATED 232 10^3/uL (150-450); RED BLOOD COUNT 3.12 10^6/uL (4.30-6.10); WHITE BLOOD COUNT 8.3 10^3/uL (4.0-10.0)
[2020-02-11 06:31] LABS: HEMOGLOBIN 9.3 g/dl (13.5-17.5)
[2020-02-11 06:48] LABS: CALCIUM LEVEL 7.4 MG/DL (8.8-10.2); CREATININE FOR GFR 2.32 MG/DL (0.70-1.30); GLOMERULAR FILTRATION RATE 28.8 (>35); MAGNESIUM LEVEL 3.6 MG/DL (1.8-2.4); POTASSIUM SERUM 4.8 MEQ/L (3.5-5.1)
[2020-02-11] MEDS ORDERED: SENOKOT S TAB PO PRN (07:30)
[2020-02-11] MEDS ORDERED: MIRALAX *UNIT DOSE* 17GM PACKET PO PRN (07:30)
[2020-02-11] MEDS ORDERED: BISACODYL 5 MG TAB PO PRN (07:30)
[2020-02-11 07:57] LABS: PERCENT SATURATION 35.4 % (19.7-50.0)
[2020-02-11] MEDS: LOSARTAN 50MG TABLET PO SCH (09:06)
[2020-02-11] MEDS: FERROUS SULFATE 325MG TAB PO SCH ×2 (09:06→20:07)
[2020-02-11] MEDS: OCUVITE 1 TAB PO SCH (09:07)
[2020-02-11] MEDS: CARVedilol 12.5 MG TAB PO SCH ×2 (09:07→20:07)
[2020-02-11] MEDS: TORSEMIDE 10 MG TABLET PO SCH (09:07)
[2020-02-11] MEDS: DOCUSATE SODIUM 100 MG CAP PO SCH (09:07)
[2020-02-11] MEDS: AMIODARONE 200 MG TAB (PACERONE) PO SCH (09:07)
[2020-02-11] MEDS ORDERED: SLF 3 ML SYR IV PRN (10:45)
--- NOTE | 2020-02-11 11:33 | REP ---
Two-view chest: 02/11/2020. Indication: Dyspnea. Comparison: 06/04/2018. Findings: Left lower lobe opacity is present. There is no pleural effusion or pneumothorax. Cardiac silhouette is at the upper limits of normal in size. Thoracic aortic tortuosity and ectasia are present. Impression: Left lower lobe pneumonia. Electronically Signed by Prabhakar Montaño DO 02/11/2020 11:24 A
--- NOTE | 2020-02-11 12:32 | IPN ---
DATE OF SERVICE: 02/11/2020 Denies chest pain, pressure, tightness, shortness of breath, lightheadedness, or dizziness. Continues to have black stools but taking iron. Says he did not have bright red blood per rectum, melena, black tarry stools, or hematemesis. The patient said Dr. See did an esophagogastroduodenoscopy (EGD) and colonoscopy about 3 weeks ago. Met with him and stated that he did not need any further followup. The patient was sent by medical oncologist to further evaluate for anemia and worsening renal dysfunction. PHYSICAL EXAMINATION: Temperature 97.2, pulse 62, respiratory rate 16, blood pressure 135/65, 99% on room air. Generally, awake, alert, oriented times three, answering questions appropriately. Anicteric sclerae. No jaundice. No pallor. No icterus. No jugular venous distention (JVD), thyromegaly. Lungs are clear to auscultation. No wheezing, rales, or rhonchi. Heart: S1, S2, irregularly irregular. Abdomen is soft, nontender, nondistended. Positive bowel sounds. Extremities: No cyanosis or clubbing. LABORATORY DATA: Reviewed. ASSESSMENT AND PLAN: An 84-year-old male with history of coronary artery disease (CAD). Appendiceal cancer with metastases to peritoneum and muscle wall, KRAS positive, MMR negative, BRAF V600E negative, and NRAS negative. Chronic diastolic heart failure. Positive cancer, status post radiation, in remission. Traumatic subdural hematoma. Reflux. Dyslipidemia. MDS. Chronic kidney disease (CKD) stage III with anemia of chronic disease. Chronic atrial fibrillation. Chronic hypertension. Right bundle branch block. Abdominal aortic aneurysm. Thoracic aortic aneurysm. Aortic valve stenosis. Coronary artery disease. Presents to the emergency room after being sent by his oncologist in [place] due to abnormal blood work with hemoglobin of 7.9, creatinine of 2.6 with complaints of fatigue and constipation for the past 3 days. IMPRESSION: 1. Symptomatic anemia. The patient has black stools but says that he takes iron at home. We will obtain hemoccult stool. The patient had been previously seen by Dr. See. Await hemoccult stool. The patient has been transfused red blood cells (RBCs) with subsequent increase in hemoglobin from 6.8 to 9.3. Currently asymptomatic. 2. History of chronic diastolic heart failure. Currently complains of shortness of breath. Intravenous (IV) fluids have been discontinued. The patient received IV fluid. Creatinine is improved to 2.32. Obtain a chest x-ray. 3. Acute on chronic kidney disease stage IV at this time. The patient had been on IV fluids, which we will discontinue due to complaints of cough. Will obtain a chest x-ray PA and lateral. 4. History of appendiceal cancer (CA), status post chemoradiation. 5. Prostate cancer, stable. 6. History of coronary artery disease (CAD). Resumed on home medications. DISPOSITION: Transfer to medical-surgical. Await physical therapy (PT) and home safety evaluation. Discharge in the morning if stable. MTDD
[2020-02-11] MEDS: SLF 3 ML SYR IV SCH ×2 (13:28→20:08)
[2020-02-11] MEDS: ATORVASTATIN 20 MG TAB PO SCH (20:04)
[2020-02-11] MEDS: amLODIPine 10 MG TAB PO SCH (20:05)
[2020-02-11] MEDS: ACETAMINOPHEN TAB 650MG DOSE (2X325MG) PO PRN (20:08)
[2020-02-11] MEDS: NORCO, ANEXSIA 5/325MG TABLET (HYDROcodone/ACETAMINOPHEN) PO PRN (20:34)
[2020-02-12] VITALS (16 sets, daily range): BP systolic 109–149; BP diastolic 52–67
[2020-02-12 05:04] LABS: HEMATOCRIT 26.5 % (42.0-52.0); HEMOGLOBIN 8.5 g/dl (13.5-17.5); MEAN CORPUSCULAR HGB CONC 32.1 g/dl (32.0-36.5); MEAN CORPUSCULAR VOLUME 90.4 fl (80.0-96.0); PLATELET COUNT, AUTOMATED 205 10^3/uL (150-450); RED BLOOD COUNT 2.93 10^6/uL (4.30-6.10); WHITE BLOOD COUNT 11.4 10^3/uL (4.0-10.0)
[2020-02-12 05:26] LABS: CALCIUM LEVEL 7.2 MG/DL (8.8-10.2); CREATININE FOR GFR 2.09 MG/DL (0.70-1.30); GLOMERULAR FILTRATION RATE 32.4 (>35); POTASSIUM SERUM 4.4 MEQ/L (3.5-5.1)
[2020-02-12] MEDS: SLF 3 ML SYR IV SCH ×3 (06:00→21:34)
[2020-02-12] MEDS: OCUVITE 1 TAB PO SCH (08:39)
[2020-02-12] MEDS: DOCUSATE SODIUM 100 MG CAP PO SCH (08:41)
[2020-02-12] MEDS: AMIODARONE 200 MG TAB (PACERONE) PO SCH (08:41)
[2020-02-12] MEDS: TORSEMIDE 10 MG TABLET PO SCH (08:41)
[2020-02-12] MEDS: LOSARTAN 50MG TABLET PO SCH (08:41)
[2020-02-12] MEDS: FERROUS SULFATE 325MG TAB PO SCH ×2 (08:41→21:33)
[2020-02-12] MEDS: CARVedilol 12.5 MG TAB PO SCH ×2 (08:42→21:33)
--- NOTE | 2020-02-12 12:02 | IPNPDOC ---
Date Seen The patient was seen on 02/12/20. Progress Note spoke with patient's medical oncologist in [place], DR. IBARRA, . "His prognosis is dismal. He did not tolerate LOW-DOSE CHEMOTHERAPY, and with extensive peritoneal carcinomatosis which is what we often see with Appendiceal cancer. " Plan: per his medical oncologist, pt is appropriate for HOSPICE CARE. VS, I&O, 24H, Fishbone Vital Signs/I&O Vital Signs Date Time Temp Pulse Resp B/P (MAP) Pulse Ox O2 Delivery O2 Flow Rate FiO2 02/12/20 11:33 97.4 63 16 148/67 95 Room Air I&O- Last 24 Hours up to 6 AM 02/12/20 05:59 Intake Total 480 ml Output Total 200 ml Balance 280 ml Laboratory Data 24H LABS Laboratory Tests 2 02/12/20 04:41: Nucleated Red Blood Cells % (auto) 0.0, Anion Gap 7L, Glomerular Filtration Rate 32.4L, Calcium Level 7.2L CBC/BMP Laboratory Tests 02/11/20 12:42 02/11/20 18:06 02/12/20 04:41 Microbiology Microbiology 02/12/20 Stool Occult Blood (ROSY) - Final, Complete 02/11/20 Stool Occult Blood (ROSY) - Final, Complete JOHN GOINS MD Feb 12, 2020 12:02
--- NOTE | 2020-02-12 13:59 | IPN ---
DATE OF SERVICE: 02/12/2020 The patient denies chest pain, pressure, tightness, lightheadedness, or dizziness. He continues to have black tarry stools and had bowel movements yesterday. Despite red blood cell (RBC) transfusion, he continues to have decrease in hemoglobin. The patient has known history of appendiceal cancer, status post debridement and resection and not a surgical candidate for a right hemicolectomy due to comorbid conditions and progressive cancer, currently stage IV with last PET scan showing metastatic lesions to the lung and liver. The patient had no fever or chills overnight. No dizziness or lightheadedness. Status post 2 units RBC transfusion with admitting hemoglobin of 6.8, increased to 10, and currently at 8.5 with ongoing black tarry stools. According to the patient's , phone number , Dr. Baker, , medical oncologist in [place], previous PET scan showed progressive tumor involving the liver and lungs with recommendations to not proceed with intravenous chemotherapy due to the patient's comorbid conditions and poor functional status. Per Dr. Iván Damon, the patient was not a candidate for right hemicolectomy due to the same reasons. At this time, the patient has decided to proceed with blood transfusions and supportive care. After discussion with his , he has concluded that he would like to be DO NOT RESUSCITATE and DO NOT INTUBATE. FULL CODE was rescinded. Medical Orders for Life-Sustaining Treatment (MOLST) form signed by the patient at the bedside with nurse as a witness. He is currently DO NOT RESUSCITATE and DO NOT INTUBATE. The patient also complains of dysphagia to solids without hematemesis or no coffee-grounds emesis. Swallow evaluation was planned for Thursday. Vital signs: Temperature 97.4, pulse 64, respiratory rate 16, blood pressure 132/63, 94% on room air. Generally, awake, alert, oriented times three, answering questions appropriately. No jugular venous distention (JVD), thyromegaly. Lungs are clear to auscultation. No wheezing or rales. Heart: S1, S2, sinus rhythm. Abdomen is soft, nontender, nondistended. Extremities: Positive edema. LABORATORY DATA: White count 11.4, hemoglobin 8.5, hematocrit 26, platelet count 205. Sodium 144, potassium 4.4, chloride 114, bicarbonate 23, BUN 38, creatinine 2.09, glucose of 93. Hemoccult stool positive. ASSESSMENT AND PLAN: This is an 84-year-old male, history of appendiceal cancer status post resection and debridement of the abscess in November [address] Iván Damon, was seen by Dr. Lv Adrian at the [facility] initially with recommendations for a right hemicolectomy. The patient has since changed medical oncology services and now sees Dr. Baker, , in [place] with repeat PET scan showing metastatic lesions to liver and lungs. Per the , general surgeon, Dr. Iván Damon, thinks the patient will be high risk for surgery for a right hemicolectomy with no plans for further surgery. The patient has progressive disease and currently failing on oral chemotherapy and presented to the emergency room with symptomatic anemia with hemoglobin of 6.9 and has been transfused 2 units of blood with subsequent increase to 10 and now down to 8.5 again with ongoing black tarry stools. The patient has a prior history of coronary artery disease, appendiceal cancer metastatic lesions to the peritoneum muscle wall, KRAS positive, MMR negative, BRAF V600E negative, and NRAS negative with metastatic lesions to the liver and lungs. Chronic diastolic heart failure. Prostate cancer, in remission. Traumatic subdural hematoma. Reflux. Dyslipidemia. Myelodysplastic syndrome. Chronic kidney disease stage III-IV with anemia of chronic disease and blood loss Chronic atrial fibrillation, not on anticoagulation due to gastrointestinal (GI) bleed. Hypertension. Right bundle branch block. Abdominal aortic aneurysm. Thoracic aortic aneurysm. Aortic valve stenosis. Coronary artery disease. Was sent by Dr. Suarez in [place] due to hemoglobin of 7.9, creatinine of 2.6 with complaints of fatigue and constipation for 3 days prior to admission. CURRENT ISSUES: 1. Symptomatic anemia secondary to black tarry stools from known history of appendiceal cancer despite taking iron at home. The patient has required 2 units RBC transfusion with ongoing bleeding with persistent black tarry stools and requirement for RBC transfusion. The patient is not a candidate for right hemicolectomy, per surgical recommendations when the patient met with Dr. Damon postoperatively in November. We will continue to transfuse RBCs to a hemoglobin of 10. Discharge home. The patient is appropriate for hospice and comfort measures only due to progressive cancer. 2. Appendiceal cancer, status post resection with metastatic lesions to the peritoneum, liver, and lungs on recent PET by Dr. Baker. Outpatient followup with Dr. Baker. Not a candidate for right hemicolectomy due to significant comorbid conditions. 3. Chronic diastolic heart failure. Intravenous (IV) fluids have been discontinued. The patient has improved his creatinine from 2.32 to 2.08. He has had a weight gain from 77.6 to 78.8 kg. He is currently receiving blood for symptomatic anemia. He has been resumed on his home dose of torsemide. 4. Hypertension. Continue on losartan, torsemide, Norvasc, and Coreg. Blood pressure is well maintained at 109-132/63. 5. History of coronary artery disease. Continue on Coreg. Not on anticoagulation due to GI bleeding. 6. Chronic kidney disease. Currently, at stage IV. III-IV at baseline. DISPOSITION: The patient has a poor overall prognosis with progressive disease despite chemotherapy. The patient will not tolerate IV chemotherapy and is currently progressing with oral chemotherapy. Not a candidate for a right hemicolectomy due to severe comorbid conditions. He has opted to change his code status to DO NOT RESUSCITATE and DO NOT INTUBATE. MOLST form has been signed. MTDD
[2020-02-12] MEDS: amLODIPine 10 MG TAB PO SCH (21:31)
[2020-02-12] MEDS: ACETAMINOPHEN TAB 650MG DOSE (2X325MG) PO PRN (21:32)
[2020-02-12] MEDS: ATORVASTATIN 20 MG TAB PO SCH (21:32)
[2020-02-12] MEDS: NORCO, ANEXSIA 5/325MG TABLET (HYDROcodone/ACETAMINOPHEN) PO PRN (21:33)
[2020-02-13] MEDS: SLF 3 ML SYR IV SCH (06:13)
[2020-02-13 06:15] LABS: HEMATOCRIT 34.3 % (42.0-52.0); MEAN CORPUSCULAR HEMOGLOBIN 29.5 pg (27.0-33.0); MEAN CORPUSCULAR HGB CONC 32.9 g/dl (32.0-36.5); MEAN CORPUSCULAR VOLUME 89.6 fl (80.0-96.0); PLATELET COUNT, AUTOMATED 183 10^3/uL (150-450); RED BLOOD COUNT 3.83 10^6/uL (4.30-6.10); WHITE BLOOD COUNT 11.8 10^3/uL (4.0-10.0)
[2020-02-13 06:21] LABS: HEMOGLOBIN 11.3 g/dl (13.5-17.5)
[2020-02-13 06:32] LABS: CALCIUM LEVEL 7.4 MG/DL (8.8-10.2); CREATININE FOR GFR 1.94 MG/DL (0.70-1.30); GLOMERULAR FILTRATION RATE 35.4 (>35); POTASSIUM SERUM 3.7 MEQ/L (3.5-5.1)
[2020-02-13] MEDS ORDERED: PYRIDOXINE 50 MG TAB PO SCH (09:00)
[2020-02-13] MEDS: FERROUS SULFATE 325MG TAB PO SCH (09:04)
[2020-02-13] MEDS: OCUVITE 1 TAB PO SCH (09:04)
[2020-02-13] MEDS: DOCUSATE SODIUM 100 MG CAP PO SCH (09:04)
[2020-02-13] MEDS: TORSEMIDE 10 MG TABLET PO SCH (09:04)
[2020-02-13 09:05] VITALS: BP 128/48
[2020-02-13] MEDS: CARVedilol 12.5 MG TAB PO SCH (09:05)
[2020-02-13] MEDS: AMIODARONE 200 MG TAB (PACERONE) PO SCH (09:05)
[2020-02-13] MEDS: LOSARTAN 50MG TABLET PO SCH (09:05)
[2020-02-13] MEDS: NORCO, ANEXSIA 5/325MG TABLET (HYDROcodone/ACETAMINOPHEN) PO PRN (09:11)
[2020-02-13] MEDS ORDERED: ATIV1TAB10 PO (12:01)
[2020-02-13] MEDS ORDERED: HYOS125TA PO (12:01)
[2020-02-13] MEDS ORDERED: MORP20SO3 PO (12:01)
[2020-02-13] MEDS ORDERED: oxyCODONE 5MG TAB PO ONE (12:15)
[2020-02-13] MEDS ORDERED: ACETAMINOPHEN *IV* 1,000 MG in IV 1 EA IV ONE ×2 (12:15→14:00)
[2020-02-13] MEDS ORDERED: LEVA1TAB2 PO (14:56)
--- NOTE | 2020-02-14 17:44 | REP ---
Esophagram The procedure was performed under the direct supervision of Dr. Ruelas. The images were reviewed with Dr. Ruelas. A single view PA chest x-ray is submitted as a manager supplier film. The superior mediastinal structures are midline. The heart size is within normal limits. The lungs are clear. Liquid barium was given in the prone oblique positions. The oral and pharyngeal stages of deglutition are unremarkable. During esophageal transport there are tertiary waves with to-and-fro motion. At the GE junction there is a narrow stricture with delayed emptying into the stomach. Impression: 1. Tertiary waves. 2. There is a narrow stricture at the GE junction with delayed emptying into the stomach. 2.3 minutes of fluoro time was utilized for this procedure. Electronically Signed by JOSSELINE Rodríguez 02/10/2020 05:04 P Electronically Signed by Oscar Ruelas MD 02/14/2020 05:36 P
--- NOTE | 2020-02-14 18:48 | DSES ---
DATE OF ADMISSION: 02/10/2020 DATE OF DISCHARGE: 02/13/2020 Patient is discharged home with hospice, DO NOT RESUSCITATE, DO NOT INTUBATE, comfort measures only. PRIMARY DISCHARGE DIAGNOSES: 1. 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 2. Active gastrointestinal bleed. 3. Acute blood loss anemia. 4. Symptomatic anemia. 5. Chronic diastolic heart failure. 6. Acute on chronic kidney disease. 7. History of coronary artery disease. 8. Hypertension. 9. Left lower lobe pneumonia. DISCHARGE MEDICATIONS: - Roxanol as needed every 2 hours - Ativan0.5 every 4 as needed - hyoscyamine 0.25 mg by mouth every 5 as needed - amiodarone 200 daily - amlodipine 10 at bedtime - atorvastatin 80 at bedtime - Coreg 12.5 twice a day - Colace 100 daily - ferrous sulfate 325 twice a day - glucosamine 1500 mg daily - losartan 100 daily - magnesium oxide 400 twice a day - multivitamin one tablet by mouth daily - Zofran 8 mg three times a day as needed - prochlorpemazine malleate 10 mg four times a day - paroxetine 100 mg three times weekly - torsemide 10 daily - vitamin A, C, E, zinc and michelle one capsule daily - Levaquin 500 mg daily Hospice medications to be managed by his primary care physician. Patient is not to return to the hospital. He is comfort measures only. HOSPITAL COURSE: This is an 84-year-old male with a history of appendiceal cancer with abscess diagnosed in 2019, debrided and resected by Dr. Iván Damon with surgical followup with recommendations that a right hemicolectomy would not be possible due to comorbid conditions and progressive cancer. Patient changed his oncology services to Dr. Olivia Hoyt, . PET scan showed progressive tumor involving liver and lungs and recommendations not to proceed with intravenous chemotherapy, as he could not tolerate this and has poor functional status. Patient was then given oral chemotherapy. He presented to the emergency room with complaints of symptomatic anemia, hemoglobin of 7.9, creatinine of 2.6, and constipation for 3 days. In the emergency room (ER) he was admitted and given 2 units red blood cells (RBC) transfusion with ongoing black tarry stools, requiring 2 more units of RBC transfusion for a total of 4 units. Patient's oncologist recommended no further treatment, as the patient is end stage and will most likely continue his bleed. He did recommend hospice care. During the admission patient's case was discussed with the on-call general surgeon, Dr. Golden, who did not recommend any intervention, as the patient is not a candidate for a right hemicolectomy. The patient was kept on his home medications with holding parameters for systolic pressure less than 120. He had no other issues during this admission with asymptomatic anemia resolving. He did have episodes of abdominal pain due to known history of liver metastasis and was given oxycodone. Patient passed home safety evaluation and subsequently discharged home with comfort measures only, DO NOT INTUBATE, DO NOT RESUSCITATE. LABORATORY DATA ON DISCHARGE: White count 11.8, hemoglobin 11.3, hematocrit 34, platelet count 183. Sodium 142, potassium 3.7, chloride 112, bicarbonate 23, BUN 39, creatinine 1.94, glucose 90. Renal ultrasound: Negative renal ultrasound. Chest x-ray: Left lower lobe pneumonia. PHYSICAL EXAMINATION ON DISCHARGE: Temperature 99, pulse 67, respiratory rate 17, blood pressure 128/48, 95% on room air. GENERAL: Awake, alert, oriented times three. No pallor or icterus. No jugular venous distention (JVD). No thyromegaly. LUNGS: Diminished, left basilar crackles. HEART: S1, S2, sinus rhythm. ABDOMEN: Soft, nontender, nondistended. Positive bowel sounds. EXTREMITIES: Positive edema. TIME SPENT ON DISCHARGE: 30 minutes.
== END 2020-02-13 13:55 | disposition hospice, home (50) | DRG 377 ==
LOC: M ED 13:11 → M ED INP 14:47 → ENRESERV 15:17 → M PCU 16:37 → M MS5PR 02-12 15:55
PROVIDERS: ADMIT Internal Medicine; ATTEND General Practice
PROC: 30233N1 Transfusion of Nonautologous Red Blood Cells into Peripheral Vein, Percutaneous Approach (ICD-10-PCS; principal; 2020-02-10)
DX: K92.2 Gastrointestinal hemorrhage, unspecified (principal); J18.9 Pneumonia, unspecified organism; N17.9 Acute kidney failure, unspecified; I50.32 Chronic diastolic (congestive) heart failure; I13.0 Hypertensive heart and chronic kidney disease with heart failure and stage 1 through stage 4 chronic kidney disease, or unspecified chronic kidney disease; C78.00 Secondary malignant neoplasm of unspecified lung; C78.7 Secondary malignant neoplasm of liver and intrahepatic bile duct; C78.6 Secondary malignant neoplasm of retroperitoneum and peritoneum; D62 Acute posthemorrhagic anemia; N18.4 Chronic kidney disease, stage 4 (severe); D63.0 Anemia in neoplastic disease; D46.9 Myelodysplastic syndrome, unspecified; E87.5 Hyperkalemia; Z79.899 Other long term (current) drug therapy; Z51.5 Encounter for palliative care; Z66 Do not resuscitate; K21.9 Gastro-esophageal reflux disease without esophagitis; I71.4 Abdominal aortic aneurysm, without rupture; Z87.891 Personal history of nicotine dependence; I35.0 Nonrheumatic aortic (valve) stenosis; Z85.46 Personal history of malignant neoplasm of prostate; I48.91 Unspecified atrial fibrillation; E78.5 Hyperlipidemia, unspecified; D63.1 Anemia in chronic kidney disease; R13.10 Dysphagia, unspecified